=== PATIENT | female | born 1980 | race Caucasian/White ===

== ENCOUNTER 2017-12-28 07:57 | Outpatient (CLI) | payer MEDICAID ==
--- NOTE | 2017-12-28 09:54 | ULT ---
TRANSVAGINAL AND TRANSABDOMINAL PELVIC ULTRASOUND: INDICATIONS: Pelvic pain. TECHNIQUE: Emmanuel-scale and color Doppler with spectral Doppler images were obtained of the pelvis via transabdomi nal and transvaginal approach. FINDINGS: The uterus measures 10.3 x 5.3 x 6.6 cm. There is a small nabothian cyst seen within the cervix. Th e endometrial stripe measures 1.3 mm. The right ovary measures 6.1 x 4.9 x 5.1 cm. There is normal flow to the right ovary. There is a 5. 7 cm cyst within the right ovary. The left ovary measures 2.6 x 2.2 x 2.1 cm. There is normal flow to the left ovary. There is a 1.8 cm cyst within the left ovary. There is mild free fluid in the pelvis. IMPRESSION: 1. Bilateral ovarian follicular cysts, the largest seen on the right, measuring 5.7 cm. Due to the size of the right ovarian follicular cyst, a follow-up examination in six to eight weeks is recommend ed to document resolution. 2. Mild free fluid in the pelvis, which is nonspecific. 3. Small nabothian cysts within the cervix. POS: [facility]
== END 2017-12-28 07:58 | disposition home or self-care (01) ==
LOC: BICULT 07:57
PROVIDERS: ATTEND Nurse Practitioner Women's Health
DX: N92.4 Excessive bleeding in the premenopausal period (principal); R10.2 Pelvic and perineal pain; N83.02 Follicular cyst of left ovary; N83.01 Follicular cyst of right ovary; N88.8 Other specified noninflammatory disorders of cervix uteri
CPT/HCPCS: 76856